=== PATIENT | female | born 2000 | race Asian ===

== ENCOUNTER 2025-03-29 08:49 | Inpatient (IN) | payer OTHER, SELFPAY ==
[2025-03-27 15:02] VITALS: BP 142/94
[2025-03-27 15:11] LABS: Glucose - Point of Care 426 mg/dl (70-99)
--- NOTE | 2025-03-27 15:46 | ED.GENMED ---
History of Present Illness
General
Chief Complaint: Abdominal Symptoms
Source: patient
Exam Limitations: none
Time Seen by Provider: 03/27/25 15:31
History of Present Illness
History of Present Illness:
24yoF with a history of IBS, asthma, and migraines presenting with her boyfriend for evaluation of abdominal symptoms. Symptoms began 2 days ago with vomiting, diarrhea, headache, and abdominal pain. She thought she had food poisoning because she
ate raw oysters the day before in [place]. She had a telehealth visit with her PCP and was prescribed Zofran and vomiting resolved. The remainder of her symptoms are persistent. She went to urgent care today for evaluation and had blood work and
was found to have a glucose of 460. She has no known history of diabetes but states that diabetes does run in her family. Both of her parents have type 2 diabetes and she believes one of her siblings also has diabetes. She also reports some
dizziness and blurred vision. Headache is currently rated as an 8/10 in severity and her lower abdominal discomfort is a 9/10 in severity. She denies any urinary symptoms, fevers, shortness of breath. Her only prescription medications are
Singulair and an oral contraceptive.
Past History
Past History
ED Past Medical History: Asthma and Other (Colitis, anxiety)
ED Past Surgical History: None
Social History
Tobacco: Non-smoker
Alcohol: None
Drug: None
Personal: Single
Living: with family
Employment: Not employed
Family History
Family History: Other
Phy Exam
Physical Exam
Physical Exam:
Appears fatigued, non-toxic
General Physical Exam
General Presentation: mild distress
General Skin: warm and dry
General Habitus: normal
General Mental: alert
ENT Exam
ENT Exam: normocephalic and other (No meningismus)
Eye Exam
Eye Exam: PERRL and conjunctiva normal
Cardiovascular Exam
Cardiovascular Exam: regular rate/rhythm
Pulmonary Exam
Pulmonary Exam: lungs clear, no respiratory distress, no rales, no crackles, no rhonchi and no wheezing
Gastrointestinal Exam
Gastrointestinal Exam: soft, non distended and other (+Tenderness throughout lower abdomen. No rebound or guarding.)
Neurological Exam
Neurological Exam: alert
[place] Coma Scale
Eye Opening: Spontaneous
Verbal Response: Oriented
Motor Response: Obeys Commands
GCS Total Score: 15
Skin Exam
Skin Exam: normal color and warm/dry
Psychiatric Exam
Psychiatric Exam: normal mood/affect
Course
Orders/Labs/Results
Orders:
Orders
03/27/25 15:07
Test Result ONCE
03/27/25 15:22
Complete Blood Count/With Diff Urgent
Comprehensive Metabolic Panel Urgent
HCG, Serum Qualitative Screen Urgent
Comment: Notify provider if positive test present
Lipase Urgent
Magnesium Urgent
Comment: ADD ON
03/27/25 15:44
Add On- LAB Urgent
Tests Added?: magnesium
Urinalysis Reflex To Culture Urgent
Stool Culture Urgent
ALAN Source: Feces/Stool
Specimen Description:
0.9% Sodium Chloride 1000 ml [Nss] 1,000 ml IV BOLUS
Diphenhydramine [Benadryl] 25 mg IV NOW STA
Metoclopramide [Reglan] 10 mg IV NOW STA
03/27/25 15:45
Electrocardiogram (*1) Urgent
Reason for Study: Abdominal Pain
CT Abd/pelvis W Iv Cont Urgent
Comment:
Reason For Exam: lower abd pain, diarrhea
CT Head W/o Iv Contrast Urgent
Comment:
Reason For Exam: acute headache
EKG- Treatment ONCE
03/27/25 16:15
B-Hydroxybutyrate Urgent
Hemoglobin A1c [Glycohemoglobin (HgbA1c)] Urgent
Venous Blood Gas Urgent
%Oxygen/Room Air: room air
03/27/25 17:01
0.9% Sodium Chloride 1000 ml [Nss] 1,000 ml IV BOLUS
03/27/25 18:31
Bedside Glucose- Treatment ONCE
Insulin Human Regular [Novolin R] 5 units IV NOW STA
Abnormal Lab Results
03/27/25 03/27/25 03/27/25
15:09 15:22 16:15
MPV 11.0 H fL
(7.4-10.4)
VBG pO2 72 H mmHg
(30-50)
Sodium 133 L mmol/L
(135-145)
Glucose 458 H* mg/dl
(70-99)
AST 53 H U/L
(14-36)
B-Hydroxybutyrate 0.30 H mmol/L
(0.02-0.27)
POC Glucose 426 H mg/dl
(70-99)
03/27/25
19:24
MPV
VBG pO2
Sodium
Glucose
AST
B-Hydroxybutyrate
POC Glucose 305 H mg/dl
(70-99)
03/27/25 15:22
03/27/25 15:22
Vital Signs
Initial and Last Documented VS:
Initial Vital Signs
Temp Pulse Resp BP Pulse Ox
98.2 F 95 16 142/94 98
03/27/25 15:02 03/27/25 15:02 03/27/25 15:02 03/27/25 15:02 03/27/25 15:02
Last Documented Vital Signs
Temp Pulse Resp BP Pulse Ox
98.2 F 95 16 142/94 98
03/27/25 15:02 03/27/25 15:02 03/27/25 15:02 03/27/25 15:02 03/27/25 15:50
MDM/Problems Addressed
Differential Diagnosis Includes:
24yoF here with v/d, abd pain, NUNO x 2 days. Thought she had food poisoning. Went to urgent care today and found to be hyperglycemic with glucose of 460 and sent to the ED. No prior hx of diabetes. VSS. She appears fatigued but is non-toxic. Lower
abd tenderness noted on exam. Differential diagnosis includes: new onset diabetes, DKA, HHS, dehydration, gastroenteritis
Initial ED plan: Check abdominal labs, VBG, beta hydroxybutyrate, UA, EKG, stool culture, CT head, and CT abdomen. 2L NS bolus ordered.
*Pulse Oximetry
SaO2: 98
Oxygen Mode of Delivery: Room air
Patient hypoxic: no (98%)
*Critical Care Note
Total Time (30-74mins, 75-104mins- exclusive of procedures): Not Applicable
Update Note
Update Note:
Glucose 458 on metabolic panel. Bicarb and venous pH normal. Remainder of labs unremarkable including normal white count. CT head and abdomen are negative for acute findings. Glucose improved to 305 after fluids. A1c pending. Will admit for
further management.
ED Attending Note
-
Portions of this chart may have been created with voice recognition software.� Occasional wrong word or��sound alike� substitutions may have occurred due to the inherent limitations of voice recognition software.
Discharge Plan
Departure
Patient Disposition: Admit
Date of Disposition: 03/27/25
Time of Disposition: 19:15
Presentation/result/management discussed w/ accepting MD/DO: Hospitalist
Discharge Problem:
Diabetes mellitus, new onset
Prescriptions:
No Action
norgestimate-ethinyl estradiol [Tri Femynor] 1 EACH tablet
1 tab PO DAILY
ondansetron 4 MG tablet,disintegrating
4 mg PO TIDPRN PRN (Reason: nausea/vomiting) Qty: 12 0RF
mpbbrbfebp-zqhqpkjhsbyrh-ific [Fioricet] 1 EACH capsule
1 ea PO TIDPRN PRN (Reason: headache) Qty: 14 0RF
rizatriptan 10 MG tablet
10 mg PO TID
topiramate 25 MG tablet
25 mg PO DAILY
hydroxyzine HCl 50 MG tablet
50 mg PO HS PRN (Reason: insomnia)
hyoscyamine sulfate 0.125 MG tablet, sublingual
0.125 mg sublingual Q6 PRN (Reason: abdominal spasms) Qty: 30 0RF
Singulair
Referrals:
Irena yL NP [Family Provider, Family Practice]
Interventions
Interventions:
*Risk Screen - Suicide Last Done: 03/27/25 15:02
*General Assessment Last Done: 03/27/25 18:20
*Neglect/Abuse Screening Last Done: 03/27/25 15:02
*ED- Fall Risk Assessment Last Done: 03/27/25 18:20
PK-Wiyigq-Lqwgqbnbxv Assessment Last Done: 03/27/25 19:43
Discharge Date and Time
Print Language: ITALIAN
[2025-03-27 15:53] LABS: HCG, Serum Qualitative Screen Negative
[2025-03-27 15:54] LABS: Hematocrit 43.8 % (37.0-47.0); Hemoglobin 14.5 g/dL (12.0-16.0); Mean Corp Hgb Conc. 33.1 g/dL (33.0-37.0); Mean Corpuscular Volume 91.6 fL (81.0-99.0); Nucleated Red Blood Cells % 0 %; Platelet Count 276 10^3/uL (130-400); Red Cell Dist. Width 13.0 % (11.5-14.5)
[2025-03-27] MEDS: REGLAN 10 MG IV (16:18)
[2025-03-27] MEDS: BENADRYL 25 MG IV (16:18)
[2025-03-27] MEDS: NSS 1000 IV ×3 (16:19→23:18)
[2025-03-27 16:25] LABS: Venous Blood Gas B.E. -1.7 mmol/L (-4 to +4); Venous Blood Gas O2 Sat % 95.5 %
[2025-03-27 16:38] LABS: ALT (SGPT) 17 U/L (0-35); AST (SGOT) 53 U/L (14-36); Albumin 4.2 g/dl (3.5-5.0); Alkaline Phosphatase 75 U/L (38-126); Blood Urea Nitrogen 8 mg/dl (7-17); Calcium 9.3 mg/dl (8.4-10.2); Carbon Dioxide 23 mmol/L (22-30); Chloride 99 mmol/L (98-107); Glucose 458 mg/dl (70-99); Lipase 79 U/L (23-300); Magnesium 1.9 mg/dl (1.6-2.3); Potassium 4.4 mmol/L (3.5-5.1); Sodium 133 mmol/L (135-145); Total Protein 7.3 g/dl (6.3-8.2); eGFR > 60.00
[2025-03-27 19:26] LABS: Glucose - Point of Care 305 mg/dl (70-99)
[2025-03-27 20:00] VITALS: BP 134/86
--- NOTE | 2025-03-27 20:33 | HPS.HSE ---
Family Physician
-
Family Physician: Irena Ly
Chief Complaint
-
Elevated blood glucose
History of Present Illness
Patient is a 24 y/o female past medical history of asthma and migraine headaches who presents with elevated blood glucose. Patient developed headache associated with nausea, vomiting and diarrhea earlier this week. She was prescribed Zofran and the
vomiting resolved however other symptoms persisted. She was seen at urgent care today who found her sugars to be 500 and she was sent to the emergency department for evaluation. Patient reports she gets yearly blood work, and states sugars
previously were not elevated. However, she has a strong family history of diabetes including both parents.
Medical History
Past Medical History
Past Medical History: Reports Other
Additional Past Medical History:
Asthma
Migraine Headaches
Irritable Bowel Syndrome
Past Surgical History: Reports None
Social History
Tobacco: Non-smoker
Alcohol: Occasional
Family History
Family History: Diabetes (Both Parents)
Allergies / Home Medications
Allergies reflects when Allergies were last updated in [facility].
Home Medications with original date entered in [facility]
Allergy/Medication List:
Allergies
Allergy/AdvReac Type Severity Reaction Status Date / Time
dicyclomine Allergy Rash Verified 03/27/25 15:02
Home Medications
budesonide-formoterol HFA 160 mcg-4.5 mcg/actuation aerosol inhaler 2 puff inhalation BID 03/27/25
ipratropium bromide 42 mcg (0.06 %) nasal spray 1 - 2 spray intranasal TIDPRN PRN allergy 03/27/25
norgestimate 0.18 mg/0.215mg/0.25 mg-ethinyl estradiol 0.025 mg tablet (Euz-Xe-Enhaxn) 1 tab PO DAILY 03/27/25
Review of Systems
-
A 12 point ROS was completed and negative except as noted: Yes
Constitutional: Denies Fever
Respiratory: Denies Cough or Trouble Breathing
Cardiac: Denies Chest Pain or Palpitations
Abdomen/GI: Reports See HPI
Physical Exam
Vital Signs
Vital Signs
Temp Pulse Resp BP Pulse Ox
98.2 F 95 16 142/94 98
03/27/25 15:02 03/27/25 15:02 03/27/25 15:02 03/27/25 15:02 03/27/25 15:50
Physical Exam
General: Comfortable and Conversant
HEENT: Anicteric and Moist mucous membranes
Respiratory: Clear and Non Labored Respirations
Cardiac: S1/S2 and Regular Rhythm
GI: Soft and Other (Mild discomfort throughout without rebound or guarding)
Rectal: Deferred by Provider
Musculoskeletal: No Clubbing and No Cyanosis
Skin: Warm and Dry
Neuro: Awake, Alert, Oriented and Nonfocal/grossly intact
Psych: Calm
Laboratory Results
-
03/27/25 15:22
03/27/25 15:22
Laboratory Results
Total Bilirubin 0.5 mg/dl (0.2-1.3) 03/27/25 15:22
AST 53 U/L (14-36) H 03/27/25 15:22
ALT 17 U/L (0-35) 03/27/25 15:22
Alkaline Phosphatase 75 U/L (38-126) 03/27/25 15:22
Lipase 79 U/L (23-300) 03/27/25 15:22
Data Reviewed
-
Lab Data: Labs Reviewed by me
Old Records: Reviewed
Impression/Plan
-
Diabetes Mellitus - New Onset
-Check HgbA1c
-Start Lantus 12 units HS - Further recommendations based on HgbA1c
-Monitor sugars and continue coverage insulin
Asthma, no acute exacerbation
-Continue budesonide/formoterol
DVT proph: SCDs
Code Status: Full Code
--- NOTE | 2025-03-27 21:11 | W.PN.UPDATE ---
Update Note
Progress Note Update
Patient seen in conjunction with RASHAUN. I agree with the findings on history and physical. I concur with assessment and plan.
Briefly, this is a 24-year-old female with past medical history significant for asthma and migraine headaches who presents to the emergency department after being found to have elevated blood glucose of 500 today at urgent care.
Patient has been complaining of a headache nausea vomiting diarrhea throughout the week. She is not aware of any polyuria or polydipsia. She does note strong family history of diabetes. She felt better after liter of normal saline in the ED.
In the emergency department patient was afebrile, blood pressure was normal at 140/94 with a pulse rate of 95 satting 98% on room air.
CBC was unremarkable, electrolytes BUN/creatinine were stable. Glucose was elevated over 400. There was no anion gap. Blood gas was normal.
CT of the head shows no acute intracranial process. CT of the abdomen pelvis also shows no acute findings.
LFTs were unremarkable.
New onset diabetes without any evidence of acute infection. She has no evidence of DKA. Glucose has improved with just IV fluids. Possibly type 1 diabetes versus EVANGELINA (although did not present with DKA)
-Admit to MedSurg observation
-Will cover overnight with sliding scale insulin
-Lipid panel and A1c in the morning
-planning Weight-based insulin long-acting at 12 units at bedtime and continue sliding scale at home
-Patient and family well aware of glucose monitoring and adjustment of insulin. They will follow-up with PMD in the morning and consider outpatient w/u for type I diabetes
DVT prophylaxis SCD
CODE STATUS full code
[2025-03-27 21:40] LABS: Glucose - Point of Care 387 mg/dl (70-99)
[2025-03-27] MEDS: NOVOLOG vial 5 UNITS SC (21:43)
[2025-03-27] MEDS: LANTUS 0.12 UNITS SC (21:44)
[2025-03-27 22:20] LABS: Glucose - Point of Care 436 mg/dl (70-99)
[2025-03-27 22:35] VITALS: BP 114/66; BMI 30.7
[2025-03-27 22:40] LABS: Glucose - Point of Care 364 mg/dl (70-99)
--- NOTE | 2025-03-27 23:42 | PTCARENOTE ---
Receive pt from ER. Pt alert oriented X3, calm, in no distress. Pt assist X1 to bed, steady gait. Pt oriented to the room, call montemayor within reach. VSS (T=98.1, HR=74, RR=18, ON=954/66, SpO2=96% on RA). IQ=917. pt was given 12 units Lantus in ER AT
2144. Will recheck BS in 2hrs.
[2025-03-28 01:13] LABS: Glucose - Point of Care 254 mg/dl (70-99)
[2025-03-28 03:45] LABS: Glucose - Point of Care 228 mg/dl (70-99)
[2025-03-28 07:00] VITALS: BP 147/88
[2025-03-28] MEDS: SYMBICORT 160/4.5 MCG INHALER 2 PUFF INH ×2 (07:36→19:51)
[2025-03-28 07:55] LABS: Hematocrit 39.2 % (37.0-47.0); Hemoglobin 12.8 g/dL (12.0-16.0); Mean Corp Hgb Conc. 32.7 g/dL (33.0-37.0); Mean Corpuscular Volume 92.9 fL (81.0-99.0); Platelet Count 227 10^3/uL (130-400); Red Cell Dist. Width 13.0 % (11.5-14.5)
[2025-03-28 08:01] LABS: Urine Character Clear (Clear)
[2025-03-28 08:24] LABS: Blood Urea Nitrogen 5 mg/dl (7-17); Calcium 8.5 mg/dl (8.4-10.2); Carbon Dioxide 24 mmol/L (22-30); Chloride 106 mmol/L (98-107); Estimated Creatinine Clearance > 125 ml/min; Glucose 269 mg/dl (70-99); Potassium 3.8 mmol/L (3.5-5.1); Sodium 136 mmol/L (135-145); eGFR > 60.00
[2025-03-28 08:26] LABS: Glucose - Point of Care 282 mg/dl (70-99)
[2025-03-28] MEDS: NSS 1000 IV ×2 (08:55→19:40)
[2025-03-28] MEDS: NOVOLOG FLEXPEN-MODERATE RESISTANCE 5 UNITS SC (09:31)
--- NOTE | 2025-03-28 10:02 | W.PN.HOSP.TC ---
Today's Communication/Plan
-
monitor BG
f/u A1c
insulin inj education
Assessment / Plan
Assessment / Plan
Diabetes Mellitus - New Onset
Hyperglycemia
- Family history of diabetes with mother dxed for DM at @ 45yr
- Check HgbA1c, result pending.
- Got lantus 12 U overnigh and on ISS
- Discussed need of insulin possibly for now based on A1c results
- Discussed diet change/weight loss strategy
- No complication of DM2 based on h/o
- Recommended f/u with civil engineering teacher post discharge.
Asthma, no acute exacerbation
-Continue budesonide/formoterol
DVT proph: SCDs
Code Status: Full Code
Total time spent ; 54 mins
Anticipated Discharge: Within 24 hours
Subjective/Interval History
-
Date of Service: March 28, 2025
not voicing any complains
denies abd pain/nausea/vomiting
Objective Data
-
Labs:
Laboratory Results
03/28/25
07:00
WBC 7.0
Hgb 12.8
Hct 39.2
Plt Count 227
Sodium 136
Potassium 3.8
Chloride 106
Carbon Dioxide 24
BUN 5 L
Creatinine 0.5 L
Glucose 269 H
Calcium 8.5
Vital Signs:
Vital Signs
Temp Pulse Resp BP Pulse Ox
98.4 F 77 16 147/88 97
03/28/25 07:00 03/28/25 07:40 03/28/25 07:40 03/28/25 07:00 03/28/25 07:40
I&O
03/27/25 03/28/25 03/29/25
06:59 06:59 06:59
Intake Total 700 / 700
Balance 700 / 700
Review of Systems
-
Respiratory: Reports No Symptoms
Cardiac: Reports No Symptoms
Abdomen/GI: Reports No Symptoms
Physical Exam
-
General: Obese
HEENT: Negative Oxygen
Neuro: Awake, Alert and Oriented
--- NOTE | 2025-03-28 10:32 | CM ---
Patient seen bedside w/ mother, initial assessment completed. Patient is a 24 y/o female past medical history of asthma and migraine headaches who presents with elevated blood glucose.
Patient resides w/ mother in a single story home, no steps to enter. Independent in all areas. PCP is Irena Ly. Pharmacy is [facility] in [place].
Patient admitted obs status. OOBS form verbally reviewed, copy provided, copy on chart
Poss d/c home tomorrow
Plan: Home, no needs
[2025-03-28] MEDS: ZOFRAN 4 MG IV ×2 (11:12→19:40)
[2025-03-28] MEDS: TYLENOL 650 MG PO (11:17)
[2025-03-28 11:41] LABS: Glucose - Point of Care 265 mg/dl (70-99)
[2025-03-28 13:24] LABS: Glucose - Point of Care 247 mg/dl (70-99)
[2025-03-28] MEDS: NOVOLOG FLEXPEN-MODERATE RESISTANCE 3 UNITS SC (13:27)
[2025-03-28 13:50] LABS: Glycohemoglobin (HgbA1c) 11.5 % (4.0-5.6)
[2025-03-28] MEDS: MORPHINE SULFATE 1 MG IV (13:57)
[2025-03-28 15:40] VITALS: BP 147/98
[2025-03-28] MEDS: REGLAN 5 MG IV ×2 (16:13→23:30)
[2025-03-28 16:17] LABS: Glucose - Point of Care 205 mg/dl (70-99)
[2025-03-28 17:30] LABS: Blood Urea Nitrogen < 2 mg/dl (7-17); Calcium 9.1 mg/dl (8.4-10.2); Carbon Dioxide 24 mmol/L (22-30); Chloride 106 mmol/L (98-107); Estimated Creatinine Clearance > 125 ml/min; Glucose 213 mg/dl (70-99); Potassium 3.7 mmol/L (3.5-5.1); Sodium 138 mmol/L (135-145); eGFR > 60.00
[2025-03-28 18:06] LABS: Glucose - Point of Care 194 mg/dl (70-99)
[2025-03-28] MEDS: NOVOLOG FLEXPEN-MODERATE RESISTANCE 1 UNITS SC (18:07)
[2025-03-28] MEDS: NOVOLOG FLEXPEN SC (18:09)
[2025-03-28] MEDS: DILAUDID 0.25 MG IV (20:25)
[2025-03-28 21:34] LABS: Glucose - Point of Care 215 mg/dl (70-99)
[2025-03-28] MEDS: LANTUS 0.15 UNITS SC (22:19)
[2025-03-28 23:59] VITALS: BP 116/66
[2025-03-29] MEDS: NSS 1000 IV ×2 (05:22→17:17)
[2025-03-29 07:07] VITALS: BP 117/65
[2025-03-29] MEDS: SYMBICORT 160/4.5 MCG INHALER 2 PUFF INH (07:43)
[2025-03-29] MEDS: REGLAN 5 MG IV ×3 (08:15→23:07)
[2025-03-29] MEDS: ZOFRAN 4 MG IV ×2 (08:21→19:53)
[2025-03-29 08:26] LABS: Glucose - Point of Care 187 mg/dl (70-99)
[2025-03-29] MEDS: NOVOLOG FLEXPEN SC ×3 (08:30→18:23)
--- NOTE | 2025-03-29 08:54 | W.PN.HOSP.TC ---
Addendum entered and electronically signed by Amauri Noble MD 03/29/25 13:21:
LFT normal except minimally elevated AST. Reason unclear
Lipsae wnl
Trans vag US showing ruptured ovarian cyst and increased pelvic fluid, continue symptomatic care.
Original Note:
Today's Communication/Plan
-
see note
Assessment / Plan
Assessment / Plan
Diabetes Mellitus - New Onset
Hyperglycemia
- Family history of diabetes with mother dxed for DM at @ 45yr
- Hbga1c of 11.5 ~ avg BG 283 for last 3months.
- Discussed diet change/weight loss strategy
- No complication of DM2 based on h/o
- Recommended f/u with skills auditor post discharge.
- Based on A1c result patient will require insulin therapy post discharge.
- Currently having intractable lower abd pain and n/v and unable to keep up with oral intake.
Lower abd pain
Intractable n/v
- not able to tolerate IV morphin/dialudid
- tried on two anti-emetics and symptoms bit better for n/v
- CT a/p IV contrast at admit did not show any problems
- Bhcg -ve
- Trans vaginal US ordered to r/o ovarian torsion
Asthma, no acute exacerbation
-Continue budesonide/formoterol
DVT proph: SCDs
Code Status: Full Code
Total time spent ; 56 mins
Change level of care to inpatient admission
Anticipated Discharge: 24 - 48 hours
Subjective/Interval History
-
Date of Service: March 29, 2025
continues to have significant lower abd pain and nausea/vomiting
feeling 'hot' but not febrile
Objective Data
-
Labs:
Laboratory Results
03/29/25
08:32
Sodium Pending
Potassium Pending
Chloride Pending
Carbon Dioxide Pending
BUN Pending
Creatinine Pending
Glucose Pending
Calcium Pending
Total Bilirubin Pending
AST Pending
ALT Pending
Alkaline Phosphatase Pending
Vital Signs:
Vital Signs
Temp Pulse Resp BP Pulse Ox
98.3 F 84 14 116/66 95
03/28/25 23:59 03/29/25 07:48 03/29/25 07:48 03/28/25 23:59 03/29/25 07:48
I&O
03/28/25 03/29/25 03/30/25
06:59 06:59 06:59
Intake Total 700 / 700 600 / 600
Balance 700 / 700 600 / 600
Review of Systems
-
Respiratory: Reports No Symptoms
Cardiac: Reports No Symptoms
Abdomen/GI: Reports Abdominal Pain, Nausea, Vomiting and Diarrhea
Physical Exam
-
General: No Apparent Distress and Comfortable
HEENT: Negative Oxygen
Respiratory: Clear to Auscultation
Cardiac: Regular Rhythm and S1/S2; Negative Murmur or Rub
GI: Soft, Normal Bowel Sounds and Tender (Lower abd pain)
Musculoskeletal: No Edema
Neuro: Awake, Alert, Oriented, No Motor Deficits and Nonfocal/Grossly Intact
Psych: Calm
[2025-03-29 09:47] LABS: ALT (SGPT) 23 U/L (0-35); AST (SGOT) 107 U/L (14-36); Albumin 3.8 g/dl (3.5-5.0); Alkaline Phosphatase 65 U/L (38-126); Blood Urea Nitrogen 4 mg/dl (7-17); Calcium 9.0 mg/dl (8.4-10.2); Carbon Dioxide 26 mmol/L (22-30); Chloride 106 mmol/L (98-107); Estimated Creatinine Clearance > 125 ml/min; Glucose 227 mg/dl (70-99); Lipase 48 U/L (23-300); Potassium 3.5 mmol/L (3.5-5.1); Sodium 138 mmol/L (135-145); Total Protein 6.6 g/dl (6.3-8.2); eGFR > 60.00
[2025-03-29] MEDS: NOVOLOG FLEXPEN-MODERATE RESISTANCE 1 UNITS SC ×3 (10:21→18:21)
[2025-03-29 12:21] LABS: Glucose - Point of Care 193 mg/dl (70-99)
[2025-03-29] MEDS: TORADOL 15 MG IV ×2 (14:55→22:05)
[2025-03-29 15:04] VITALS: BP 122/64
[2025-03-29 17:24] LABS: Glucose - Point of Care 155 mg/dl (70-99)
--- NOTE | 2025-03-29 18:35 | PTCARENOTE ---
Received patient this am AAOx3. pt complains of nausea intermittently. Medication with standing Reglan and Zofran PRN. Pt states Reglan and Zofran helped a little. Pt complained of lower abdominal pain. Medicated with IV Toradol with minimal
relief. Pt has one episode of vomiting today and six episodes of diarrhea. Dr. Joaquin Noble made aware. Pt see for u/s today. Pt not eating so insulin scheduled with meals was held. Made patient comfortable. Cont to assess patient status.
[2025-03-29] MEDS: SYMBICORT 160/4.5 MCG INHALER INH (19:28)
[2025-03-29] MEDS: DILAUDID 0.25 MG IV ×2 (19:53→23:52)
[2025-03-29] MEDS: NSS IV (21:24)
[2025-03-29 21:30] LABS: Glucose - Point of Care 153 mg/dl (70-99)
[2025-03-29] MEDS: LANTUS 0.15 UNITS SC (21:57)
[2025-03-29 23:18] VITALS: BP 140/92
[2025-03-30] MEDS: NSS 1000 IV ×3 (02:59→23:59)
[2025-03-30 03:07] LABS: Glucose - Point of Care 159 mg/dl (70-99)
[2025-03-30 06:57] VITALS: BP 152/92
[2025-03-30] MEDS: SYMBICORT 160/4.5 MCG INHALER INH (07:19)
[2025-03-30] MEDS: ZOFRAN 4 MG IV ×3 (07:29→21:36)
[2025-03-30] MEDS: TORADOL 15 MG IV (07:30)
[2025-03-30 08:16] LABS: Urine Character Slightly Cloudy (Clear)
[2025-03-30] MEDS: ROXICODONE 10 MG PO ×3 (08:17→17:07)
[2025-03-30 08:33] LABS: Glucose - Point of Care 174 mg/dl (70-99)
[2025-03-30] MEDS: NOVOLOG FLEXPEN SC ×2 (09:04→12:22)
[2025-03-30 09:09] LABS: Hematocrit 40.5 % (37.0-47.0); Hemoglobin 13.4 g/dL (12.0-16.0); Mean Corp Hgb Conc. 33.1 g/dL (33.0-37.0); Mean Corpuscular Volume 92.3 fL (81.0-99.0); Platelet Count 236 10^3/uL (130-400); Red Cell Dist. Width 13.1 % (11.5-14.5)
[2025-03-30] MEDS: REGLAN 5 MG IV ×3 (09:10→23:58)
[2025-03-30] MEDS: NOVOLOG FLEXPEN-MODERATE RESISTANCE 1 UNITS SC (09:12)
[2025-03-30 09:23] LABS: Urine Red Blood Cell 0-2 /HPF (0-2); Urine Squamous Cell 16-20 /LPF (Few)
[2025-03-30 09:40] LABS: Blood Urea Nitrogen 3 mg/dl (7-17); Calcium 9.3 mg/dl (8.4-10.2); Carbon Dioxide 23 mmol/L (22-30); Chloride 107 mmol/L (98-107); Estimated Creatinine Clearance > 125 ml/min; Glucose 183 mg/dl (70-99); Potassium 3.5 mmol/L (3.5-5.1); Sodium 139 mmol/L (135-145); eGFR > 60.00
--- NOTE | 2025-03-30 09:41 | W.PN.HOSP.TC ---
Today's Communication/Plan
-
see note
Assessment / Plan
Assessment / Plan
Diabetes Mellitus - New Onset
Hyperglycemia
- Family history of diabetes with mother dxed for DM at @ 45yr
- Hbga1c of 11.5 ~ avg BG 283 for last 3months.
- Discussed diet change/weight loss strategy
- No complication of DM2 based on h/o
- Recommended f/u with data warehousing manager post discharge.
- Based on A1c result patient will require insulin therapy post discharge.
- Currently having intractable lower abd pain and n/v and unable to keep up with oral intake.
Ruptured ovarian cyst
- CT a/p IV contrast at admit did not show any problems
- Bhcg -ve
- Trans vaginal US showing possible ruptured ovarian cyst
- In light of persistent symptoms SALES DEVELOPMENT MANAGER consulted. Recommended Toradol 30 mg every 8 hour for now. Will evaluate patient later today
Intractable nausea vomiting
Diarrhea
- Mother reported patient have history of IBS although symptom severity does not add on
- GI asked to evaluate as well
C. difficile antigen positive
- Patient has been positive for C. difficile antigen in 2019 and on checked this visit as well. Toxin negative
Asthma, no acute exacerbation
-Continue budesonide/formoterol
DVT proph: SCDs
Code Status: Full Code
Total time spent ; 53 mins
Anticipated Discharge: 24 - 48 hours
Subjective/Interval History
-
Date of Service: March 30, 2025
Continues to have intractable lower abdominal pain
presist with diarrhea
Persistent nausea vomiting and not able to keep any fluids down
Significant loss of appetite
Objective Data
-
Labs:
Laboratory Results
03/30/25 03/30/25
08:29 08:30
WBC 8.9
Hgb 13.4
Hct 40.5
Plt Count 236
Sodium 139
Potassium 3.5
Chloride 107
Carbon Dioxide 23
BUN 3 L
Creatinine 0.5 L
Glucose 183 H
Calcium 9.3
Total Bilirubin Pending
AST Pending
ALT Pending
Alkaline Phosphatase Pending
Vital Signs:
Vital Signs
Temp Pulse Resp BP Pulse Ox
98.4 F 69 16 152/92 96
03/30/25 06:57 03/30/25 06:57 03/30/25 06:57 03/30/25 06:57 03/30/25 06:57
I&O
03/29/25 03/30/25 03/31/25
06:59 06:59 06:59
Intake Total 1800 / 1800 2640 / 2640
Balance 1800 / 1800 2640 / 2640
Review of Systems
-
Respiratory: Reports No Symptoms
Cardiac: Reports No Symptoms
Abdomen/GI: Reports Abdominal Pain, Nausea, Vomiting and Diarrhea
Physical Exam
-
General: No Apparent Distress and Comfortable
HEENT: Negative Oxygen
Respiratory: Clear to Auscultation
Cardiac: Regular Rhythm and S1/S2; Negative Murmur or Rub
GI: Soft, Normal Bowel Sounds and Tender (Lower abd pain)
Musculoskeletal: No Edema
Neuro: Awake, Alert, Oriented, No Motor Deficits and Nonfocal/Grossly Intact
Psych: Calm
[2025-03-30 09:44] LABS: ALT (SGPT) 29 U/L (0-35); AST (SGOT) 135 U/L (14-36); Albumin 3.6 g/dl (3.5-5.0); Alkaline Phosphatase 64 U/L (38-126); Total Protein 6.3 g/dl (6.3-8.2)
--- NOTE | 2025-03-30 09:49 | CON.GI ---
Addendum entered and electronically signed by Dharmesh Farr MD 03/30/25 15:51:
I saw and examined the patient.
The PA's note was reviewed and I agree with the note.
Comment:
24-year-old female with H/O asthma, migraines, and IBS who p/w nausea, vomiting, diarrhea, and headache. On admission she was noted to have glucose in the 500 range. No anion gap / evidence of DKA. Patient was given IV fluids and insulin with
improvement of her glucose level. She also complained of persistent nausea/vomiting, and diarrhea. She reports having low oysters few days ago. No sick contacts. She had colonoscopy in 2019 when she was dx'ed with IBS. Afebrile, no
leukocytosis, CT of abdomen and pelvis on admission showed no acute inflammatory findings. ? delayed emptying from hyperglycemia vs infectious etiology, agree with adding vibrio/others in stool study, should have GES as OP once her acute phase is
resolved.
Original Note:
Consultation
-
Date/Time Consultation Requested: 03/30/25819
Date/Time Consultation Performed: 03/30/25 0950
Requesting Provider: Chang Noble MD
Performing Provider: RASHAUN Khanna, Dharmesh Farr MD
Reason for Consultation: nausea, vomiting and diarrhea
Medical History
Chief Complaint / HPI
History of Present Illness:
Pt is a 24yo with hx asthma, migraines, IBS presents with abdominal symptoms with nausea, vomiting, diarrhea, headache and migraines. She admits to recent Oyster ingestion last Sunday. She began on Sunday with sudden onset of lightheadedness
with nausea and vomiting. After several episode of vomiting she noted small amount of hematemesis and had had difficulty with eating since that time. She also admits to lower abdominal pain. She went to urgent care as was noted with FBS of 500
and sent to ER with concern for new DM. On admission to noted with stable CBC. chemistry with glucose 227, AST [address] noted with no inflammatory process. US with free fluid in pelvis with recent ruptured cyst
considered. Stool studies c-diff ag + tox neg as noted in past and neg Ecoli other cx pending.
In review with patient she admits to more IBS - constipation. She was recommended fiber but recently having regular stools. She began with diarrhea with nausea and vomiting soon after raw oyster ingestion. She also admits to lower abdominal
pain and fever. She denies wt loss, chronic nausea, vomiting, dysphagia, or GERD, blood or black in stools. Pt was seen by GI in 2019 with bloody diarrhea and abdominal pain. In 2019 she completed colonoscopy with normal mucosa with negative
pathology. Pt did take Ibuprofen since onset of symptoms and occasionally prior to symptoms.
Past Medical History
Past Medical History: Asthma and Other (migraines, IBS)
Social History
Tobacco: Non-Smoker
Alcohol: Occasional
Drug: None
Living: With Family
Employment: Employed
Family History
Family History: Other (no family hx IBD, Colon Ca, parents with hx diabetes)
Allergies / Home Medications
Allergy/AdvReac Type Severity Reaction Status Date / Time
dicyclomine Allergy Rash Verified 03/27/25 15:02
�Medication �Instructions �Recorded
budesonide-formoterol HFA 160 2 puff inhalation BID 03/27/25
mcg-4.5 mcg/actuation aerosol
inhaler
ipratropium bromide 42 mcg (0.06 1 - 2 spray intranasal TIDPRN PRN 03/27/25
%) nasal spray allergy
norgestimate 0.18 mg/0.215mg/0.25 1 tab PO DAILY 03/27/25
mg-ethinyl estradiol 0.025 mg
tablet (Gfo-Eb-Otpdrb)
Review of Systems
-
History Source: Patient and Family
Constitutional: Reports Fever
EENT: Reports No Symptoms
Respiratory: Reports No Symptoms
Cardiac: Reports No Symptoms
Abdomen/GI: Reports Abdominal Pain, Nausea, Vomiting and Diarrhea
: Reports No Symptoms
Musculoskeletal: Reports Other (muscle aches )
Skin: Reports No Symptoms
Neurological: Reports Headache
Endocrine: Reports No Symptoms
Hematologic/Lymphatic: Reports No Symptoms
Vital Signs
Temp Pulse Resp BP Pulse Ox
98.4 F 69 16 152/92 96
03/30/25 06:57 03/30/25 06:57 03/30/25 06:57 03/30/25 06:57 03/30/25 06:57
Physical Exam
Exam
General: Well Developed, Well Nourished and Other (some distress with headache and continued nausea )
HEENT: Normocephalic and Anicteric
Respiratory: Clear
Cardiac: Regular Rhythm
GI: Soft, Non Distended and Tender (lower abdomen )
Musculoskeletal: No Clubbing and No Cyanosis
Skin: Warm and Dry
Neuro: Awake, Alert and AO x 3
Psych: Calm
Results
WBC 8.9 10^3/uL (4.8-10.8) 03/30/25 08:30
Hgb 13.4 g/dL (12.0-16.0) 03/30/25 08:30
Hct 40.5 % (37.0-47.0) 03/30/25 08:30
MCV 92.3 fL (81.0-99.0) 03/30/25 08:30
Plt Count 236 10^3/uL (130-400) 03/30/25 08:30
Absolute Neuts (auto) 6.2 10^3/uL (1.4-6.5) 03/27/25 15:22
Sodium 139 mmol/L (135-145) 03/30/25 08:29
Potassium 3.5 mmol/L (3.5-5.1) 03/30/25 08:29
Chloride 107 mmol/L (98-107) 03/30/25 08:29
Carbon Dioxide 23 mmol/L (22-30) 03/30/25 08:29
BUN 3 mg/dl (7-17) L 03/30/25 08:29
Creatinine 0.5 mg/dL (0.6-1.0) L 03/30/25 08:29
Calcium 9.3 mg/dl (8.4-10.2) 03/30/25 08:29
Total Bilirubin 0.6 mg/dl (0.2-1.3) 03/30/25 08:30
AST 135 U/L (14-36) H 03/30/25 08:30
ALT 29 U/L (0-35) 03/30/25 08:30
Alkaline Phosphatase 64 U/L (38-126) 03/30/25 08:30
Lipase 48 U/L (23-300) 03/29/25 09:14
Diagnostic Image Results:
03/27/25 CT Abd/pelvis W Iv Cont
No acute inflammatory process within the abdomen or pelvis. No suspicious bowel abnormality. No bowel obstruction. The appendix is normal.
Mild hepatomegaly with fatty infiltration.
03/27/25 US abdomen
Mild free fluid in the pelvis. More than expected for physiologic fluid. Increased. A recently ruptured ovarian cyst should be considered.
Prior GI Procedures:
EGD: none
Colonoscopy: 2020 [facility] normal mucosa neg pathology
Assessment / Plan
-
Pt is a 24yo with hx asthma, migraines, IBS presents with abdominal symptoms with nausea, vomiting, diarrhea, headache and migraines. She admits to recent Oyster ingestion last Sunday. She began on Sunday with sudden onset of lightheadedness
with nausea and vomiting. After several episode of vomiting she noted small amount of hematemesis and had had difficulty with eating since that time. She also admits to lower abdominal pain. She went to urgent care as was noted with FBS of 500
and sent to ER with concern for new DM. On admission to noted with stable CBC. chemistry with glucose 227, AST [address] noted with no inflammatory process. US with free fluid in pelvis with recent ruptured cyst
considered. Stool studies c-diff ag + tox neg as noted in past and neg Ecoli other cx pending. Pt did take Ibuprofen since onset of symptoms and occasionally prior to symptoms. In 2020 she completed colonoscopy with normal mucosa with negative
pathology. Per hospitalist note hbgA1C 11.5.
-acute onset of nausea. vomiting, abdominal pain, and diarrhea
-recent raw oyster ingestion
-DM - newly diagnosis
-c-diff ag + tox neg with similar results in 2020
-possible ruptured ovarian cyst with free fluid in pelvis
other med problems:
-HX IBS-Constipation
-asthma
-migraines
PLAN:
etiology of symptoms related to infectious etiology with recent oyster ingestion vs gastroparesis with new DM , ovarian cyst related vs other
add vibrio, Giardia, crypto to stool cultures to rule out infectious etiology -- c-diff likely prior infection but if not improving consider adding Dificid
cont treatment for new DM
pt currently on RTC Reglan
cont IVF, antiemetics, PPI
pain control per hospitalist- try to avoid narcotics
for PROBATE PARALEGAL eval with possible ruptured ovarian cyst
consider OP formal gastric emptying scan off narcotics and antiemetics
family updated
-
-
Thank you for consultation and allowing me to participate in the patient's care. Please call the [facility] GI physician during the after hours with any questions or concerns.
[2025-03-30] MEDS: TORADOL 30 MG IV ×2 (10:59→17:44)
[2025-03-30] MEDS: PROTONIX IV 40 MG IV (11:01)
[2025-03-30] MEDS: NSS (PRESERVATIVE FREE) 10 ML IV (11:01)
[2025-03-30 12:19] LABS: Glucose - Point of Care 148 mg/dl (70-99)
[2025-03-30] MEDS: NOVOLOG FLEXPEN-MODERATE RESISTANCE SC ×2 (12:23→17:04)
--- NOTE | 2025-03-30 13:08 | PN.DE.MGMTRT ---
Insulin Management
- -
03/30/2025: Diabetes Management Consult
24 year old female PMH: Asthma and migraine headaches who presents with elevated blood glucose. Patient developed headache associated with nausea, vomiting and diarrhea earlier this week. She was prescribed Zofran and the vomiting resolved however
other symptoms persisted. She was seen at urgent care and her sugars was found to be 500 and she was sent to the emergency department for evaluation.
Pt awake, alert, oriented,curled up in bed in position, c/o abd pain, Mom at bedside, very supportive
Patient reports she gets yearly blood work, and states sugars previously were not elevated. However, she has a strong family history of diabetes including both parents and 2 siblings, all of whom are seeing Endocrinology. She is noted for new onset
Diabetes Mellitus with an A1C of 11.5%, Cr 0.5, eGFR >60
Glucose in acceptable range of 155 to 193, with fasting glucose of 183V.
Dr. Noble has ordered her AC NovoLog 3 units and 2000 inez diet. Pt not eating and has ongoing nausea with abd pain.
Will HOLD AC dose. Change diet to 1800 inez. Increase Lantus to 17 units and cont corrective insulin.
Discussed with Nurse. Will cont to follow. Will add Diabetes Education consult for monitor and insulin instructions and dietary counseling.
Diabetes History
- -
Type of Diabetes: 2 requiring insulin
Pre-Admission Diabetes Regimen
03/30/25
08:29
Creatinine 0.5 L
Lab Results
Hemoglobin A1c 11.5 % (4.0-5.6) H 03/27/25 16:15
Insulin Pump Settings
IP Diabetes Regimen
03/29/25 03/29/25 03/30/25
17:23 21:28 03:06
Glucose
POC Glucose 155 H 153 H 159 H
03/30/25 03/30/25 03/30/25
08:29 08:31 12:17
Glucose 183 H
POC Glucose 174 H 148 H
Amount consumed: Patient refused
Patient Education
[2025-03-30 15:00] VITALS: BP 132/77
--- NOTE | 2025-03-30 15:45 | CM ---
Patient continues with pain/nausea.
Plan remains home no needs anticipated.
[2025-03-30 16:54] LABS: Glucose - Point of Care 138 mg/dl (70-99)
--- NOTE | 2025-03-30 17:45 | CS.OBGYN ---
Consult Summary - RESEARCH & ANALYTICS MANAGER
-
Pt seen and examined. Consult dictated. Summary below
24 y/o LMP 03/28/2025 Not female Adm to 03/27/2025 with a weeks h/o Abd pain/ Nausea/vomiting and found to have a BS at urgent care of 500
Pt adm for BS management
Pt has been on OCPs since the age of 17 y/o because of an unintended for which she had an elective termination.
She has been on ocps since then without any problems
She is under the care of an RESEARCH & ANALYTICS MANAGER in [place]- Pt couldn't remember the doctor's name
Due to the abd pain/ nausea and vomiting, pt under went a CT which was normal and a pelvic u/s to r/o ovarian torsion.
Pelvic u/s showed normal ovaries b/l and a mild amount of pelvic fluid. Normal flow to b/l ovaries and no ovarian cysts were seen
I performed an abdominal and pelvic exam on pt in her bed-
Abd- soft/+BS, b/l lower quadrant tenderness/ no rebound and no guarding
Pt currently menstruating- small amount of blood in the vagina
Vulva/ vagina- normal/ Scant blood/ No abnormal d/c
Cx- normal/ no CMT
Uterus- NS/AV/NT
Adnexa- No masses/Non tender
A/P-
24 y/o with nausea/ vomiting/ abd pain
Pt is on ocps for prevention and is currently not
On menses now
Despite her abd tenderness pt has a benign/Nontender pelvic exam
Normal ovaries on imaging- no cysts were seen and good flow to both ovaries
No evidence of a signal integrity engineer infection, PID or ovarian torsion
Given pt is currently menstruating, the mild free fluid is most likely physiologic and not secondary to a ruptured ovarian cyst
Even if pt had an ovarian cyst that ruptured the pain is self limited, resolves spontaneously usually within 36-48 hrs and not assoc with nausea and vomiting
Pt's current sx can NOT be explained by a ruptured ovarian cyst
[2025-03-30] MEDS: DILAUDID 0.25 MG IV (19:49)
[2025-03-30] MEDS: SYMBICORT 160/4.5 MCG INHALER 2 PUFF INH (19:50)
[2025-03-30 20:59] LABS: Glucose - Point of Care 145 mg/dl (70-99)
[2025-03-30] MEDS: LANTUS 0.15 UNITS SC (21:33)
--- NOTE | 2025-03-30 21:34 | PTCARENOTE ---
HS blood sugar checked with a result of 145. Pt during the day mostly not getting fast acting insulin and not eating during the day due to abdominal discomfort. AUTISM TEACHER notified that pt has 17 units lantus ordered. AUTISM TEACHER held 17 unit dose and ordered at 15
unit lantus to be administered tonight.
[2025-03-30 23:16] VITALS: BP 127/81
[2025-03-31] MEDS: TORADOL 30 MG IV ×2 (02:58→09:57)
[2025-03-31 03:07] LABS: Glucose - Point of Care 135 mg/dl (70-99)
[2025-03-31 07:15] VITALS: BP 119/70
[2025-03-31] MEDS: SYMBICORT 160/4.5 MCG INHALER 2 PUFF INH ×2 (07:18→19:57)
[2025-03-31] MEDS: REGLAN 5 MG IV (07:31)
[2025-03-31] MEDS: NSS (PRESERVATIVE FREE) 10 ML IV (07:31)
[2025-03-31] MEDS: PROTONIX IV 40 MG IV (07:31)
[2025-03-31] MEDS: DILAUDID 0.25 MG IV (07:32)
[2025-03-31 07:34] LABS: Glucose - Point of Care 133 mg/dl (70-99)
[2025-03-31] MEDS: NOVOLOG FLEXPEN-MODERATE RESISTANCE SC (08:03)
--- NOTE | 2025-03-31 08:48 | PN.DE.MGMTRT ---
Insulin Management
- -
03/31/2025: Diabetes Management Consult Follow up
24 year old female PMH: Asthma and migraine headaches who presents with elevated blood glucose. Patient developed headache associated with nausea, vomiting and diarrhea earlier this week. She was prescribed Zofran and the vomiting resolved however
other symptoms persisted. She was seen at urgent care and her sugars was found to be 500 and she was sent to the emergency department for evaluation.
Pt awake, alert, oriented,curled up in bed in position, c/o abd pain, Mom at bedside, very supportive
Patient reports she gets yearly blood work, and states sugars previously were not elevated. However, she has a strong family history of diabetes including both parents and 2 siblings, all of whom are seeing Endocrinology. She is noted for new onset
Diabetes Mellitus with an A1C of 11.5%, Cr 0.5, eGFR >60
03/30 patient consuming no meals, glucose in acceptable range of 138 to 148. Received 15 units lantus @ hs, fasting glucose today 133.
Diet reduced to 1800 inez. Will continue Lantus to 15 units and resume AC novolog 3 units, change moderate to low corrective insulin.
Discussed with Nurse. Will cont to follow. Will add Diabetes Education consult for monitor and insulin instructions and dietary counseling.
Diabetes History
- -
Type of Diabetes: 2 requiring insulin
Pre-Admission Diabetes Regimen
03/30/25
08:29
Creatinine 0.5 L
Lab Results
Hemoglobin A1c 11.5 % (4.0-5.6) H 03/27/25 16:15
Insulin Pump Settings
IP Diabetes Regimen
03/30/25 03/30/25 03/30/25
08:29 12:17 16:53
Glucose 183 H
POC Glucose 148 H 138 H
03/30/25 03/31/25 03/31/25
20:57 03:06 07:33
Glucose
POC Glucose 145 H 135 H 133 H
Amount consumed: Patient refused
Amount consumed: Patient refused
Patient Education
[2025-03-31 09:22] LABS: Hematocrit 40.4 % (37.0-47.0); Hemoglobin 13.5 g/dL (12.0-16.0); Mean Corp Hgb Conc. 33.4 g/dL (33.0-37.0); Mean Corpuscular Volume 92.0 fL (81.0-99.0); Platelet Count 244 10^3/uL (130-400); Red Cell Dist. Width 13.1 % (11.5-14.5)
[2025-03-31 09:53] LABS: Blood Urea Nitrogen < 2 mg/dl (7-17); Calcium 9.7 mg/dl (8.4-10.2); Carbon Dioxide 22 mmol/L (22-30); Chloride 105 mmol/L (98-107); Estimated Creatinine Clearance > 125 ml/min; Glucose 172 mg/dl (70-99); Potassium 3.5 mmol/L (3.5-5.1); Sodium 139 mmol/L (135-145); eGFR > 60.00
--- NOTE | 2025-03-31 10:04 | W.PN.GI.CBS2 ---
Addendum entered and electronically signed by Ana Antonio Do, MD 03/31/25 14:11:
I saw and examined the patient.
The CURATOR ZOOLOGICAL MUSEUM's note was reviewed and I agree with the note.
Comment: Leticia continues to have poor appetite and nausea. Denies cannabis use. Vitals reviewed exam obese W mild distress hunched over, NTTP without guarding or rebound. Labs reviewed.
Recommendations
- Increase reglan for presumptive gastroparesis in setting of new diagnosis of poorly controlled DM
- Risk of TD and QTC prolongation discussed and acceptable
- Optimization of Blood sugars
- Macadam Raker consult for low fiber low fat small freq meals and glucerna supplements added
- If not improving can consider EGD inpatient vs outpatient baiss
Will follow with you
Addendum entered and electronically signed by RASHAUN Beth 03/31/25 13:28:
QTC 438 will increased reglan to 10mg Q 8 hours -- Dr. abdullahi reviewed side effects with patient including Tardive dyskinesis.
Original Note:
Today's Communication / Plan
-
etiology of symptoms related to infectious etiology with recent oyster ingestion vs gastroparesis with new DM , ovarian cyst related vs other
awaiting further stool cultures
cont treatment for new DM
encouraged diet-- add low residue to diet, small frequent meals and add Glucerna daily
pt currently on RTC Reglan 5mg Q 8 hours will check EKG if stable will increased to 10mg Q 8 hours
cont IVF, antiemetics, PPI
pain control per hospitalist- try to avoid narcotics
appreciate TOOLROOM ATTENDANT eval with possible ruptured ovarian cyst
consider OP formal gastric emptying scan off narcotics and antiemetics
for dietary consult
family updated
Assessment / Plan
-
Pt is a 24yo with hx asthma, migraines, IBS presents with abdominal symptoms with nausea, vomiting, diarrhea, headache and migraines. She admits to recent Oyster ingestion last Sunday. She began on Sunday with sudden onset of lightheadedness
with nausea and vomiting. After several episode of vomiting she noted small amount of hematemesis and had had difficulty with eating since that time. She also admits to lower abdominal pain. She went to urgent care as was noted with FBS of 500
and sent to ER with concern for new DM. On admission to noted with stable CBC. chemistry with glucose 227, AST [address] noted with no inflammatory process. US with free fluid in pelvis with recent ruptured cyst
considered. Stool studies c-diff ag + tox neg as noted in past and neg Ecoli other cx pending. Pt did take Ibuprofen since onset of symptoms and occasionally prior to symptoms. In 2020 she completed colonoscopy with normal mucosa with negative
pathology. Per hospitalist note hbgA1C 11.5.
-acute onset of nausea. vomiting, abdominal pain, and diarrhea
-recent raw oyster ingestion
-DM - newly diagnosis with elevated FBS and hbgA1C
-c-diff ag + tox neg with similar results in 2020
-possible ruptured ovarian cyst with free fluid in pelvis
other med problems:
-HX IBS-Constipation
-asthma
-migraines
PLAN:
etiology of symptoms related to infectious etiology with recent oyster ingestion vs gastroparesis with new DM , ovarian cyst related vs other
awaiting further stool cultures
cont treatment for new DM
encouraged diet-- add low residue to diet, small frequent meals and add Glucerna daily
pt currently on RTC Reglan 5mg Q 8 hours will check EKG if stable will increased to 10mg Q 8 hours
cont IVF, antiemetics, PPI
pain control per hospitalist- try to avoid narcotics
appreciate TOOLROOM ATTENDANT eval with possible ruptured ovarian cyst
consider OP formal gastric emptying scan off narcotics and antiemetics
for dietary consult
family updated
Subjective
Subjective
Date of Service: March 31, 2025
03/29 brown stools -- diarrhea improved but still with nausea, minimal oral intakes with only water and continued abdominal pain
Objective
Data Reviewed
Laboratory Data:
Laboratory Results
03/31/25 09:05
03/31/25 09:04
Laboratory Results
Magnesium 1.9 mg/dl (1.6-2.3) 03/27/25 15:22
Total Bilirubin 0.6 mg/dl (0.2-1.3) 03/30/25 08:30
AST 135 U/L (14-36) H 03/30/25 08:30
ALT 29 U/L (0-35) 03/30/25 08:30
Alkaline Phosphatase 64 U/L (38-126) 03/30/25 08:30
Lipase 48 U/L (23-300) 03/29/25 09:14
Vital Signs and I&O:
Vital Signs
Temp Pulse Resp BP Pulse Ox
98 F 71 20 119/70 97
03/31/25 07:15 03/31/25 07:15 03/31/25 07:15 03/31/25 07:15 03/31/25 07:15
I&O
03/30/25 03/31/25 04/01/25
06:59 06:59 06:59
Intake Total 2640 / 2640 1200 / 1200
Balance 2640 / 2640 1200 / 1200
Physical Exam
Physical Exam
HEENT: Anicteric and Moist mucous membranes
Cardiology: Normal Sinus Rhythm
Pulmonary: Clear
GI: Soft, Non Distended and Tender (mild diffuse)
Extremities: No Edema
Neuro: Non Focal
[2025-03-31 11:50] LABS: Glucose - Point of Care 165 mg/dl (70-99)
--- NOTE | 2025-03-31 12:00 | CHAP ---
Msgr. Mando Blum of [facility] in [place] gave Leticia Barnett the Sacrament of the Sick and Holy Communion.
[2025-03-31] MEDS: NOVOLOG FLEXPEN-MODERATE RESISTANCE 1 UNITS SC (12:25)
[2025-03-31] MEDS: NOVOLOG FLEXPEN-LOW RESISTANCE SC (12:37)
--- NOTE | 2025-03-31 14:19 | PTCARENOTE ---
03/31/2025 I met with Leticia Barnett and her mother to review diabetes management.
She is newly diagnosed, currently experiencing ongoing abdominal pain and nausea. Her mother has T2D, has an insulin pump and CGM.
I educated on physiology of T2D, organ damage, managing with medications, monitoring BG, nutrition, activity, sleep and managing stress. I reinforced signs of hyperglycemia, hypoglycemia and hypoglycemia protocol; BS parameters and recommended HbA1c
goals, glucometer and CGM instructions, glucose tracker, medic alert bracelet and outpatient DSME program. Written material provided.
I provided patient with a [employer] glucometer sample kit. She declined verbal and hands on demonstration stating she has watched her mother complete a fingerstick and she feels confident in doing this. I educated and demonstrated on insulin
injection technique, timing, and storage. Discussed long and short acting insulin; onset/peak/duration, and encouraged her to administer his own injections with RN supervision while admitted. Discussed normal target glucose ranges and a monitoring
schedule 15 minutes before each meal when prescribed Novolog, and preprandial AM.
Encouraged patient to follow up with his PCP for post d/c appointment and to monitor medication and blood glucose levels. Provided list of endocrinologists if desired, to contact insurance company to verify in network status. Requested a
prescription for blood sugar testing supplies to be sent to his pharmacy on record. Patient verbalized understanding.
[2025-03-31 15:00] VITALS: BP 128/76
[2025-03-31] MEDS: REGLAN 10 MG IV ×2 (15:27→22:15)
--- NOTE | 2025-03-31 16:30 | W.PN.HOSP.TC ---
Today's Communication/Plan
-
continue symptomatic care
encourage oral intake
Assessment / Plan
Assessment / Plan
Diabetes Mellitus - New Onset
Hyperglycemia
- Family history of diabetes with mother dxed for DM at @ 45yr
- Hbga1c of 11.5 ~ avg BG 283 for last 3months.
- Discussed diet change/weight loss strategy
- No complication of DM2 based on h/o
- Recommended f/u with production line assembler post discharge.
- Based on A1c result patient will require insulin therapy post discharge.
- Diabetic VOCATIONAL CHILDCARE TEACHER following and help appreciated.
Possible Ruptured ovarian cyst
- CT a/p IV contrast at admit did not show any problems
- BHCG -ve
- Trans vaginal US showing possible ruptured ovarian cyst
- NICKEL OPERATOR evaluated and suspecting less likely a possible ruptured ovarian cyst and possibly regular menses pain only
Intractable nausea vomiting
Diarrhea
- Mother reported patient have history of IBS although symptom severity does not add on
- GI evaluating for possible infectious etiology
- f/u stool culture report
h/o C. difficile antigen +ve
-have h/o of cdiff antigen positive, toxin neg test in past
Asthma, no acute exacerbation
-Continue budesonide/formoterol
DVT proph: SCDs
Code Status: Full Code
Anticipated Discharge: 24 - 48 hours
Subjective/Interval History
-
Date of Service: March 31, 2025
continues to have abd pain/nausea/vomiting
afebrile.
Objective Data
-
Labs:
Laboratory Results
03/31/25 03/31/25
09:04 09:05
WBC 8.7
Hgb 13.5
Hct 40.4
Plt Count 244
Sodium 139
Potassium 3.5
Chloride 105
Carbon Dioxide 22
BUN < 2 L
Creatinine 0.5 L
Glucose 172 H
Calcium 9.7
Vital Signs:
Vital Signs
Temp Pulse Resp BP Pulse Ox
98 F 71 20 119/70 97
03/31/25 07:15 03/31/25 07:15 03/31/25 07:15 03/31/25 07:15 03/31/25 07:15
I&O
03/30/25 03/31/25 04/01/25
06:59 06:59 06:59
Intake Total 2640 / 2640 1200 / 1200
Balance 2640 / 2640 1200 / 1200
Review of Systems
-
Respiratory: Reports No Symptoms
Cardiac: Reports No Symptoms
Abdomen/GI: Reports No Symptoms
Physical Exam
-
General: No Apparent Distress and Comfortable
HEENT: Negative Oxygen
Respiratory: Clear to Auscultation
Cardiac: Regular Rhythm and S1/S2; Negative Murmur or Rub
GI: Soft, Normal Bowel Sounds and Tender (Lower abd pain)
Musculoskeletal: No Edema
Neuro: Awake, Alert, Oriented, No Motor Deficits and Nonfocal/Grossly Intact
Psych: Calm
[2025-03-31] MEDS: NORCO 5/325 1 TABLET PO ×2 (16:43→21:06)
[2025-03-31 16:57] LABS: Glucose - Point of Care 162 mg/dl (70-99)
[2025-03-31] MEDS: NOVOLOG FLEXPEN SC (17:31)
[2025-03-31] MEDS: NOVOLOG FLEXPEN-LOW RESISTANCE 1 UNITS SC (17:32)
[2025-03-31] MEDS: TORADOL IV (17:42)
[2025-03-31 21:04] LABS: Glucose - Point of Care 131 mg/dl (70-99)
[2025-03-31] MEDS: LANTUS 0.15 UNITS SC (21:28)
[2025-03-31] MEDS: MELATONIN 5 MG PO (22:14)
[2025-03-31 23:00] VITALS: BP 137/86
[2025-04-01] MEDS: TORADOL 30 MG IV ×3 (00:54→17:35)
--- NOTE | 2025-04-01 02:45 | DOWNTIME ---
There was a [employer] [place] Downtime on 04/01/2025 from 0100 to 04/01/2025 at 0235. Downtime documentation of patient's care, including medication administrations, has been reconciled in the electronic record per guidelines. Refer to the
patient's paper chart under the miscellaneous tab to see printed paper medication records and downtime forms.
[2025-04-01] MEDS: REGLAN 10 MG IV ×3 (06:03→23:34)
[2025-04-01 07:00] VITALS: BP 140/86
--- NOTE | 2025-04-01 07:26 | W.PN.GI.CBS2 ---
Today's Communication / Plan
-
etiology of symptoms related to infectious etiology with recent oyster ingestion vs gastroparesis with new DM , ovarian cyst related vs other
norovirus neg, vibrio requested but not resulted, c-diff ag + tox neg with similar result in past other cx pending
still with symptoms today-- reviewed with patient and mother agreeable for EGD to eliminate PUD or any other etiology with symptoms
NPO this am
cont treatment for new DM
after EGD resume low residue to diet, small frequent meals with glucerna
Reglan increased to 10mg Q 8 with watch for side effects, will add repeat EKG in AM 04/01 -- minimal change pt patient but just started increased dose
antiemetics, PPI
pain control per hospitalist- try to avoid narcotics
appreciate DIRECTOR CLINICAL PHARMACOLOGY eval with possible ruptured ovarian cyst
consider OP formal gastric emptying scan off narcotics and antiemetics
s/p dietary evaluation-- per chart 03/31 50% and 25% for meals then declined dinner
family updated
updated Dr. Noble
Assessment / Plan
-
Pt is a 24yo with hx asthma, migraines, IBS presents with abdominal symptoms with nausea, vomiting, diarrhea, headache and migraines. She admits to recent Oyster ingestion last Sunday. She began on Sunday with sudden onset of lightheadedness
with nausea and vomiting. After several episode of vomiting she noted small amount of hematemesis and had had difficulty with eating since that time. She also admits to lower abdominal pain. She went to urgent care as was noted with FBS of 500
and sent to ER with concern for new DM. On admission to noted with stable CBC. chemistry with glucose 227, AST [address] noted with no inflammatory process. US with free fluid in pelvis with recent ruptured cyst
considered. Stool studies c-diff ag + tox neg as noted in past and neg Ecoli other cx pending. Pt did take Ibuprofen since onset of symptoms and occasionally prior to symptoms. In 2019 she completed colonoscopy with normal mucosa with negative
pathology. Per hospitalist note hbgA1C 11.5.
-acute onset of nausea. vomiting, abdominal pain, and diarrhea
-recent raw oyster ingestion
-DM - newly diagnosis with elevated FBS and hbgA1C
-c-diff ag + tox neg with similar results in 2019
-possible ruptured ovarian cyst with free fluid in pelvis
other med problems:
-HX IBS-Constipation
-asthma
-migraines
PLAN:
etiology of symptoms related to infectious etiology with recent oyster ingestion vs gastroparesis with new DM , ovarian cyst related vs other
norovirus neg, vibrio requested but not resulted, c-diff ag + tox neg with similar result in past other cx pending
still with symptoms today-- reviewed with patient and mother agreeable for EGD to eliminate PUD or any other etiology with symptoms
NPO this am
cont treatment for new DM
after EGD resume low residue to diet, small frequent meals with glucerna
Reglan increased to 10mg Q 8 with watch for side effects, will add repeat EKG in AM 04/01 -- minimal change pt patient but just started increased dose
antiemetics, PPI
pain control per hospitalist- try to avoid narcotics
appreciate DIRECTOR CLINICAL PHARMACOLOGY eval with possible ruptured ovarian cyst
consider OP formal gastric emptying scan off narcotics and antiemetics
s/p dietary evaluation-- per chart 03/31 50% and 25% for meals then declined dinner
family updated
Subjective
Subjective
Date of Service: April 01, 2025
03/31 brown formed mucoid stools, on ADA/low residue diet with supplement and frequent meals-- still with pain and nausea
Objective
Data Reviewed
Laboratory Data:
Laboratory Results
Magnesium 1.9 mg/dl (1.6-2.3) 03/27/25 15:22
Total Bilirubin 0.6 mg/dl (0.2-1.3) 03/30/25 08:30
AST 135 U/L (14-36) H 03/30/25 08:30
ALT 29 U/L (0-35) 03/30/25 08:30
Alkaline Phosphatase 64 U/L (38-126) 03/30/25 08:30
Lipase 48 U/L (23-300) 03/29/25 09:14
Vital Signs and I&O:
Vital Signs
Temp Pulse Resp BP Pulse Ox
98.0 F 82 20 137/86 98
03/31/25 23:00 03/31/25 23:00 03/31/25 23:00 03/31/25 23:00 03/31/25 23:00
I&O
03/31/25 04/01/25 04/02/25
06:59 06:59 06:59
Intake Total 1200 / 1200 1564 / 1564
Balance 1200 / 1200 1564 / 1564
Physical Exam
Physical Exam
HEENT: Anicteric and Moist mucous membranes
Cardiology: Normal Sinus Rhythm
Pulmonary: Clear
GI: Soft, Non Distended and Tender
Extremities: No Edema
Neuro: Non Focal
[2025-04-01 07:31] LABS: Glucose - Point of Care 159 mg/dl (70-99)
--- NOTE | 2025-04-01 07:31 | PN.DE.MGMTRT ---
Insulin Management
- -
04/01/2025: Diabetes Management Consult Follow up
Patient admitted 03/27 with c/o n/v abdominal pain. Patient developed headache associated with nausea, vomiting and diarrhea earlier this week. She was prescribed Zofran and the vomiting resolved however other symptoms persisted. She was seen at
urgent care and her blood sugar was found to be 500 and she was sent to the emergency department for evaluation. PMH: Asthma and migraine headaches.
Pt awake, alert, oriented,curled up in bed in position, c/o abd pain, Mom at bedside, very supportive
Patient reports she gets yearly blood work, and states sugars previously were not elevated. However, she has a strong family history of diabetes including both parents and 2 siblings, all of whom are seeing Endocrinology. She is noted for new onset
Diabetes Mellitus with an A1C of 11.5%, Cr 0.5, eGFR >60
03/31 patient consumed 50% of breakfast, no lunch or dinner, glucose in acceptable range of 138 to 148.
04/01 Received 15 units lantus @ hs, fasting glucose today 159.
AC novolog 3 units is ordered, patient has not consumed meals, has received corrective insulin only.
Will continue Lantus to 15 units and AC novolog 3 units, with low corrective insulin. If patient does not eat meal will HOLD 3 units novolog AC.
Discussed with Nurse. Will cont to follow.
Diabetes Education Nurse has provided and instructed on Contour Next monitor and insulin instructions. Dietitian has provided education to patient.
Diabetes History
- -
Type of Diabetes: 2 requiring insulin
Pre-Admission Diabetes Regimen
03/31/25
09:04
Creatinine 0.5 L
Lab Results
Hemoglobin A1c 11.5 % (4.0-5.6) H 03/27/25 16:15
Insulin Pump Settings
IP Diabetes Regimen
03/31/25 03/31/25 03/31/25
07:33 09:04 11:49
Glucose 172 H
POC Glucose 133 H 165 H
03/31/25 03/31/25
16:56 21:02
Glucose
POC Glucose 162 H 131 H
Meal type: Dinner
Meal type: Lunch
Meal type: Breakfast
Amount consumed: Patient refused
Amount consumed: 25%
Amount consumed: 50%
Patient Education
[2025-04-01 07:59] LABS: Hematocrit 42.4 % (37.0-47.0); Hemoglobin 14.2 g/dL (12.0-16.0); Mean Corp Hgb Conc. 33.5 g/dL (33.0-37.0); Mean Corpuscular Volume 91.2 fL (81.0-99.0); Platelet Count 252 10^3/uL (130-400); Red Cell Dist. Width 13.2 % (11.5-14.5)
[2025-04-01 08:27] LABS: Blood Urea Nitrogen 3 mg/dl (7-17); Calcium 9.8 mg/dl (8.4-10.2); Carbon Dioxide 24 mmol/L (22-30); Chloride 104 mmol/L (98-107); Estimated Creatinine Clearance > 125 ml/min; Glucose 174 mg/dl (70-99); Potassium 3.8 mmol/L (3.5-5.1); Sodium 141 mmol/L (135-145); eGFR > 60.00
[2025-04-01] MEDS: NOVOLOG FLEXPEN SC ×2 (08:34→11:59)
[2025-04-01] MEDS: SYMBICORT 160/4.5 MCG INHALER 2 PUFF INH ×2 (08:39→19:52)
[2025-04-01] MEDS: NOVOLOG FLEXPEN-LOW RESISTANCE 1 UNITS SC ×3 (09:08→17:35)
[2025-04-01] MEDS: PROTONIX IV 40 MG IV (09:08)
[2025-04-01] MEDS: NSS (PRESERVATIVE FREE) 10 ML IV (09:08)
[2025-04-01 11:06] VITALS: BP 144/89
[2025-04-01 11:13] LABS: Glucose - Point of Care 181 mg/dl (70-99)
[2025-04-01 11:15] VITALS: BP 145/94
[2025-04-01 11:30] VITALS: BP 155/93
[2025-04-01] MEDS: ZOFRAN 4 MG IV (11:54)
--- NOTE | 2025-04-01 12:24 | CM ---
CM reviewed chart, patient off floor for EGD Will continue to follow for all discharge planning needs.
Plan; likely home no needs
[2025-04-01 12:47] LABS: Glucose - Point of Care 142 mg/dl (70-99)
--- NOTE | 2025-04-01 14:01 | W.PN.HOSP.TC ---
Today's Communication/Plan
-
Encourage solid food intake
Continue Reglan/Zofran
Continue current pain medication regimen
Possible discharge in 24 to 48 hours based on clinical improvement
Assessment / Plan
Assessment / Plan
Diabetes Mellitus - New Onset
Hyperglycemia
- Family history of diabetes with mother dxed for DM at @ 45yr
- Hbga1c of 11.5 ~ avg BG 283 for last 3months.
- Discussed diet change/weight loss strategy
- No complication of DM2 based on h/o
- Recommended f/u with public relations counselor post discharge.
- Based on A1c result patient will require insulin therapy post discharge.
- Diabetic ORE BRIDGE OPERATOR following and help appreciated.
Possible Ruptured ovarian cyst
- CT a/p IV contrast at admit did not show any problems
- BHCG -ve
- Trans vaginal US showing possible ruptured ovarian cyst
- OPERATIONS SUPERVISOR evaluated and suspecting less likely a possible ruptured ovarian cyst and possibly regular menses pain only
Intractable nausea vomiting
Diarrhea -resolved
Suspected gastroparesis
- Mother reported patient have history of IBS although symptom severity does not add on
- GI evaluating for possible infectious etiology
- Stool culture negative for common bacterial organism/norovirus
- Patient underwent EGD and showing gastritis.
- GI suspecting gastroparesis component, recommended continuation of Reglan therapy with monitoring of any extrapyramidal side effects
h/o C. difficile antigen +ve
-have h/o of cdiff antigen positive, toxin neg test in past
Asthma, no acute exacerbation
-Continue budesonide/formoterol
DVT proph: SCDs
Code Status: Full Code
Anticipated Discharge: 24 - 48 hours
Subjective/Interval History
-
Date of Service: April 01, 2025
Continues to have some abdominal pain
No diarrhea
Nausea no vomiting
Objective Data
-
Labs:
Laboratory Results
04/01/25
07:19
WBC 8.9
Hgb 14.2
Hct 42.4
Plt Count 252
Sodium 141
Potassium 3.8
Chloride 104
Carbon Dioxide 24
BUN 3 L
Creatinine 0.6
Glucose 174 H
Calcium 9.8
Vital Signs:
Vital Signs
Temp Pulse Resp BP Pulse Ox
97.3 F 74 13 155/93 95
04/01/25 11:06 04/01/25 11:30 04/01/25 11:30 04/01/25 11:30 04/01/25 11:30
I&O
03/31/25 04/01/25 04/02/25
06:59 06:59 06:59
Intake Total 1200 / 1200 1564 / 1564
Balance 1200 / 1200 1564 / 1564
Review of Systems
-
Respiratory: Reports No Symptoms
Cardiac: Reports No Symptoms
Abdomen/GI: Reports Abdominal Pain and Nausea; Denies Vomiting or Diarrhea
Physical Exam
-
General: No Apparent Distress and Comfortable
HEENT: Negative Oxygen
Respiratory: Clear to Auscultation
Cardiac: Regular Rhythm and S1/S2; Negative Murmur or Rub
GI: Soft, Nontender and Nondistended
Musculoskeletal: No Edema
Neuro: Awake, Alert, Oriented, No Motor Deficits and Nonfocal/Grossly Intact
Psych: Calm
[2025-04-01 15:00] VITALS: BP 126/84
[2025-04-01 17:05] LABS: Glucose - Point of Care 172 mg/dl (70-99)
[2025-04-01] MEDS: NOVOLOG FLEXPEN 3 UNITS SC (17:39)
[2025-04-01] MEDS: NORCO 5/325 1 TABLET PO (18:38)
[2025-04-01 21:22] LABS: Glucose - Point of Care 152 mg/dl (70-99)
[2025-04-01] MEDS: LANTUS 0.15 UNITS SC (21:23)
[2025-04-01] MEDS: MELATONIN 5 MG PO (21:23)
[2025-04-01 23:00] VITALS: BP 137/97
[2025-04-02] MEDS: TORADOL 30 MG IV ×2 (02:03→09:28)
[2025-04-02] MEDS: REGLAN 10 MG IV (06:14)
[2025-04-02 07:00] VITALS: BP 143/101
[2025-04-02 07:15] LABS: Glucose - Point of Care 158 mg/dl (70-99)
[2025-04-02] MEDS: SYMBICORT 160/4.5 MCG INHALER 2 PUFF INH (07:38)
--- NOTE | 2025-04-02 08:24 | PN.DE.MGMTRT ---
Insulin Management
- -
04/02/2025: Diabetes Management Consult Follow up
Patient admitted 03/27 with c/o n/v abdominal pain. Patient developed headache associated with nausea, vomiting and diarrhea earlier this week. She was prescribed Zofran and the vomiting resolved however other symptoms persisted. She was seen at
urgent care and her blood sugar was found to be 500 and she was sent to the emergency department for evaluation. PMH: Asthma and migraine headaches.
Pt awake, alert, oriented, c/o abd pain, Mom at bedside, very supportive
She is noted for new onset Diabetes Mellitus with an A1C of 11.5%, Cr 0.5, eGFR >60
04/01 Received 15 units lantus @ hs, fasting glucose 159. Patient had endoscopy.
04/02 Received 15 units lantus @ HS, fasting glucose 158.
AC novolog 3 units is ordered, patient has consumed meals, now receiving 3 units ac with low corrective insulin.
Will continue Lantus to 15 units and AC novolog 3 units, with low corrective insulin. If patient does not eat meal will HOLD 3 units novolog AC.
Discussed with Nurse. Will cont to follow.
Diabetes Education Nurse has provided and instructed on Contour Next monitor and insulin instructions. Dietitian has provided education to patient.
Diabetes History
- -
Type of Diabetes: 2 requiring insulin
Pre-Admission Diabetes Regimen
04/01/25
07:19
Creatinine 0.6
Lab Results
Hemoglobin A1c 11.5 % (4.0-5.6) H 03/27/25 16:15
Insulin Pump Settings
IP Diabetes Regimen
04/01/25 04/01/25 04/01/25
07:19 11:12 12:44
Glucose 174 H
POC Glucose 181 H 142 H
04/01/25 04/01/25 04/02/25
17:02 21:21 07:13
Glucose
POC Glucose 172 H 152 H 158 H
Meal type: Lunch
Meal type: Breakfast
Amount consumed: 0
Patient Education
[2025-04-02] MEDS: NSS (PRESERVATIVE FREE) IV (08:44)
[2025-04-02] MEDS: PROTONIX IV IV (08:44)
[2025-04-02] MEDS: NOVOLOG FLEXPEN-LOW RESISTANCE 1 UNITS SC ×2 (08:44→11:57)
[2025-04-02] MEDS: NOVOLOG FLEXPEN 3 UNITS SC ×2 (08:45→11:57)
[2025-04-02] MEDS: NSS (PRESERVATIVE FREE) 10 ML IV (09:28)
[2025-04-02] MEDS: PROTONIX IV 40 MG IV (09:28)
[2025-04-02 11:43] LABS: Glucose - Point of Care 192 mg/dl (70-99)
--- NOTE | 2025-04-02 11:44 | CM ---
CM reviewed chart, patient seen bedside with mother, for discharge today. Patient denies needs from CM at this time. Will continue to follow for all discharge planning needs.
Plan; home no needs
[2025-04-02 12:24] VITALS: BP 139/98
--- NOTE | 2025-04-02 13:24 | W.PN.HOSP.TC ---
Today's Communication/Plan
-
d/c home
Assessment / Plan
Assessment / Plan
Diabetes Mellitus - New Onset
Hyperglycemia
- Family history of diabetes with mother dxed for DM at @ 45yr
- Hbga1c of 11.5 ~ avg BG 283 for last 3months.
- Discussed diet change/weight loss strategy
- No complication of DM2 based on h/o
- Recommended f/u with grip boss post discharge.
- Based on A1c result patient will require insulin therapy post discharge.
- Diabetic OFFICE ADMINISTRATION following and help appreciated.
Possible Ruptured ovarian cyst
- CT a/p IV contrast at admit did not show any problems
- BHCG -ve
- Trans vaginal US showing possible ruptured ovarian cyst
- QUALITY CONTROL ASSOCIATE evaluated and suspecting less likely a possible ruptured ovarian cyst and possibly regular menses pain only
Intractable nausea vomiting - resolved
Diarrhea -resolved
Suspected gastroparesis
- Mother reported patient have history of IBS although symptom severity does not add on
- GI evaluating for possible infectious etiology
- Stool culture negative for common bacterial organism/norovirus
- Patient underwent EGD and showing gastritis.
- GI suspecting gastroparesis component, recommended continuation of Reglan therapy with monitoring of any extrapyramidal side effects
- Patient symptoms are better today. Recommended to follow-up with GI in office for outpatient nuclear gastric emptying test done in 4 to 6 weeks
h/o C. difficile antigen +ve
-have h/o of cdiff antigen positive, toxin neg test in past
Asthma, no acute exacerbation
-Continue budesonide/formoterol
DVT proph: SCDs
Code Status: Full Code
More than 30 minutes spent in discharge including
Final examination of the patient
Summarizing hospital stay
Instructions for continuing care to all relevant caregivers
Preparation of discharge records, prescriptions, and referral forms
Total time spent (in minutes): 39 mins
Anticipated Discharge: Today
Subjective/Interval History
-
Date of Service: April 02, 2025
No problem of pain overnight
Nausea vomiting better
Tolerating food
Objective Data
-
Vital Signs:
Vital Signs
Temp Pulse Resp BP Pulse Ox
97.8 F 101 14 139/98 97
04/02/25 12:24 04/02/25 12:24 04/02/25 12:24 04/02/25 12:24 04/02/25 12:24
I&O
04/01/25 04/02/25 04/03/25
06:59 06:59 06:59
Intake Total 1564 / 1564
Balance 1564 / 1564
Review of Systems
-
Respiratory: Reports No Symptoms
Cardiac: Reports No Symptoms
Abdomen/GI: Reports No Symptoms
Physical Exam
-
General: Obese; Negative Pain
HEENT: Negative Oxygen
Neuro: Awake, Alert, Oriented and No Motor Deficits
--- NOTE | 2025-04-03 16:00 | W.DCSUMMARY ---
Discharge Summary
Discharge Data
Date of Admission: 03/29/25
Date of Discharge: 04/02/25
-
Pending Results: No
Hospital Course
Discharging Physician : Dr Amauri Noble
Disposition : To home
Primary care physician : Dr Irena Ly
Principal Discharge diagnosis :
New onset diabetes mellitus
Intractable nausea vomiting
Diarrhea
Intractable lower abdominal pain
Question of ruptured ovarian cyst
Chronic Discharge diagnosis :
Possible irritable bowel syndrome history
History of clostridium antigen positive
Asthma
Hospital Course :
Patient is a 20-year-old female with mentioned past medical history of to ER with new onset of headaches nausea vomiting and diarrhea. Patient was found to be hyperglycemic without signs of ketoacidosis patient was started on insulin and diabetes
nurse rotation was consulted. Patient A1c resented to be 11.5. Patient blood glucose was able to be controlled with insulin. At discharge patient was provided necessary supply to take care of new onset of diabetes, patient recommended to
follow-up with gas singer.
Post admission patient's started to having intractable lower abdominal pain, CT abdomen pelvis from ER was not showing any acute issues. A transvaginal ultrasound was done which showed increased pelvic fluid and question of possible ruptured
ovarian cyst. Identification Printing Machine Setter was involved in care who recommended symptomatic care although was not convinced this this was ovarian cyst rupture. As patient was having associated diarrhea as well gastroenterology was involved as well. Infectious
workup was negative. Patient continued to have significant nausea vomiting and there was question of possible gastroparesis. Patient was started on empiric Reglan. A follow-up EGD was done which showed changes of gastritis only. Patient had slow
resolution of symptoms with continual use of Reglan/antiemetics and pain medication. At discharge patient was recommended to follow-up with gastroenterology.
Important imaging findings :
None
Procedure findings :
None
Discharge Plan
-
Patient Disposition: Home (Routine Discharge)
Discharge Diagnosis/Procedures: New diagosis - Type II Diabetes, Possible Gastroparesis
Condition: Fair
Diet: Diabetic, Carb Controlled
Activity: As tolerated
Driving Restrictions: As prior to admission
Bathing Restrictions: OK to Shower
Referrals:
Ana Mcgregor MD [Active, Gastroenterology]
Referral Note: 4-6 wks for nausea/vomiting new DM concern for gastroparesis
Irena Ly NP [Family Provider, Family Practice] - in one week
Prescriptions:
New
insulin glargine [Lantus Solostar U-100 Insulin] 100 unit/mL (3 mL) Insulin Pen
15 unit SC HS Qty: 5 1RF
Rx Instructions:
E11.65
Fiasp FlexTouch U-100 Insulin 100 unit/mL (3 mL) Insulin Pen
3 unit SC AC Qty: 5 1RF
Rx Instructions:
E11.65
(DME) blood-glucose meter [Accu-Chek Guide Glucose Meter] Misc
Qty: 1 0RF
Rx Instructions:
To test blood sugar As Directed E11.65
(DME) Accu-Chek Guide test strips Strip
Qty: 200 1RF
Rx Instructions:
Test blood sugar before each meal and HS and PRN if suspect hypoglycemia As Directed E11.65
(DME) lancets [Accu-Chek Softclix Lancets] Misc
Qty: 200 1RF
Rx Instructions:
Test blood sugar before each meal and HS and PRN if suspect hypoglycemia As Directed E11.65
(DME) pen needle, diabetic [Diane 2nd Gen Pen Needle] 32 gauge x 5/32' Needle
Qty: 200 1RF
Rx Instructions:
For use with insulin pen ACHS As Directed E11.65
metoclopramide HCl [Reglan] 5 mg tablet
5 mg PO ACHS PRN (Reason: nausea and vomiting) Qty: 15 0RF
pantoprazole [Protonix] 40 mg tablet,delayed release (DR/EC)
40 mg PO DAILY 28 Days Qty: 28 0RF
(DME) Work/School note
See Rx Instructions .Route .MEDSUPPLY Qty: 1 0RF
Rx Instructions:
Ms Leticia Cummings is hospitalized under my care from 03/27/25 to 04/02/25. She is free to go back to work/school from 04/08/25.
Continued
ipratropium bromide 42 mcg (0.06 %) spray,non-aerosol
1 - 2 spray INTRANASAL TIDPRN PRN (Reason: allergy)
norgestimate-ethinyl estradiol [Nwh-Ym-Johtmn] 0.18/0.215/0.25 mg-0.025 mg tablet
1 tab PO DAILY
budesonide-formoterol 160-4.5 mcg/actuation HFA aerosol inhaler
2 puff INHALATION BID
Discharge Orders:
Discharge Patient (As Directed); Ordered 04/02/25
Ordered By: Amauri Noble
Discharge Date and Time
Discharge Date/Time: 04/02/25 12:31
Print Language: [email or web address]
== END 2025-04-02 12:31 | disposition home or self-care (01) | DRG 73 ==
LOC: 4 WEST ACU 08:49
PROVIDERS: Physician Assistant; Physician Assistant Medical; ADMITTING PHYSICIAN Internal Medicine; ATTENDING PHYSICIAN Hospitalist; CONSULT PHYSICIAN Internal Medicine Gastroenterology; CONSULT PHYSICIAN Obstetrics & Gynecology Gynecology; EMERGENCY PHYSICIAN Emergency Medicine; FAMILY PHYSICIAN Nurse Practitioner Family
PROC: 0DB98ZX Excision of Duodenum, Via Natural or Artificial Opening Endoscopic, Diagnostic (ICD-10-PCS; 2025-04-01)
PROC: 0DB68ZX Excision of Stomach, Via Natural or Artificial Opening Endoscopic, Diagnostic (ICD-10-PCS; 2025-04-01)
PROC: 0DB58ZX Excision of Esophagus, Via Natural or Artificial Opening Endoscopic, Diagnostic (ICD-10-PCS; 2025-04-01)
DX: E11.43 Type 2 diabetes mellitus with diabetic autonomic (poly)neuropathy (principal); K66.1 Hemoperitoneum; E11.65 Type 2 diabetes mellitus with hyperglycemia; Z83.3 Family history of diabetes mellitus; K58.9 Irritable bowel syndrome, unspecified; J45.909 Unspecified asthma, uncomplicated; G43.909 Migraine, unspecified, not intractable, without status migrainosus; N83.209 Unspecified ovarian cyst, unspecified side; K29.70 Gastritis, unspecified, without bleeding; K76.0 Fatty (change of) liver, not elsewhere classified; K31.84 Gastroparesis
CPT/HCPCS: 70450; 74177; 76830; 76856; 80048; 80053; 80076; 81003; 81015; 82010; 82805; 82962; 83036; 83690; 83735; 84703; 85025; 85027; 87045; 87046; 87086; 87328; 87329; 87427; 87798; 88305; 88342; 93005; 94640; 96361; 96374; 96375; 99285; Q9967